=== PATIENT | male | born 1995 | race Caucasian/White ===

== ENCOUNTER 2017-10-15 04:54 | Emergency (ER) | payer SELFPAY ==
[~2017-10-15] VITALS: Ht 185.4 cm; Wt 84.6 kg
[2017-10-15 04:56] VITALS: BP 127/84
[2017-10-15] MEDS ORDERED: OXYcodone/APAP 5/325MG TABLET ONE (05:28)
[2017-10-15] MEDS ORDERED: OXYcodone/APAP 5/325MG TABLET PO ONE (05:30)
[2017-10-15] MEDS ORDERED: ONDANSETRON ODT 4 MG PO ONE (05:30)
== END 2017-10-15 06:25 | disposition home or self-care (01) ==
LOC: ED 06:01
DX: S42.212A Unspecified displaced fracture of surgical neck of left humerus, initial encounter for closed fracture (principal); W19.XXXA Unspecified fall, initial encounter; Y93.72 Activity, wrestling; Y92.009 Unspecified place in unspecified non-institutional (private) residence as the place of occurrence of the external cause; Y99.8 Other external cause status
CPT/HCPCS: 29105; 73030; 73060; 99284; Q0162